=== PATIENT | male | born 1940 | race Two or more races ===

== ENCOUNTER 2016-09-18 15:26 | Emergency (ER) | payer MEDICARE ==
[~2016-09-18] VITALS: Ht 175.3 cm; Wt 95.0 kg
[2016-09-18 16:43] LABS: HEMATOCRIT. 30.8 % (42.0-52.0); HEMOGLOBIN. 9.6 g/dL (14.0-18.0); MEAN CORPUSCULAR HEMOGLOBIN 19.1 pg (28.0-32.0); MEAN CORPUSCULAR HGB CONC 31.3 g/dL (31.0-37.0); MEAN PLATELET VOLUME 9.6 fl (7.4-10.4); PLATELET 175 x1000/uL (130-400); RED BLOOD CELL COUNT 5.04 mill/uL (4.7-6.1); RED CELL DISTRIBUTION WIDTH 16.1 % (11.6-14.6); WHITE BLOOD COUNT 5.9 x1000/uL (4.5-11.0)
[2016-09-18 16:46] LABS: INR 1.1; PARTIAL THROMBOPLASTIN TIME 29.1 sec (24.0-34.0); PROTHROMBIN TIME 11.6 sec
[2016-09-18 16:47] LABS: DIFFERENTIAL COMMENT 1
[2016-09-18 16:56] LABS: CHLORIDE 101 mEq/L (98-107); INDEX HEMOLYSI 1 (1-3); INDEX ICTERIC 1 (1-4); INDEX LIPEMIC 1 (1-3)
[2016-09-18 17:00] LABS: ALBUMIN 3.7 g/dL (3.4-5.0); ANION GAP 13; CALCIUM 8.9 mg/dL (8.5-10.1); CARBON DIOXIDE 30 mEq/L (21-32); LIPASE 110 IU/L (73-393); UREA NITROGEN BLOOD 15 mg/dL (7-21)
[2016-09-18 17:02] LABS: ALANINE AMINOTRANSFERASE 20 IU/L (13-61)
[2016-09-18 17:05] LABS: eGFR > 60 mL/min (>60)
[2016-09-18 17:06] LABS: TROPONIN I < 0.02 ng/mL (0.00-0.04)
[2016-09-18 17:49] LABS: HYPOCHROMASIA 2+; OVALOCYTES 1+; PLATELET ESTIMATE NORMAL
[2016-09-18 18:20] VITALS: BP 120/71
== END 2016-09-18 18:50 | disposition left against medical advice (07) ==
LOC: ER 15:26 → SUPCPDRO 17:23 → ER 18:50
DX: I20.0 Unstable angina (principal); E78.00 Pure hypercholesterolemia, unspecified; I10 Essential (primary) hypertension; I25.10 Atherosclerotic heart disease of native coronary artery without angina pectoris; E66.9 Obesity, unspecified; Z68.30 Body mass index [BMI] 30.0-30.9, adult; Z95.2 Presence of prosthetic heart valve
CPT/HCPCS: 36415; 71010; 80053; 83690; 84484; 85025; 85610; 85730; 93005; 99285